=== PATIENT | male | born 1960 | race Caucasian/White ===

== ENCOUNTER 2017-07-31 16:58 | Inpatient (IN) | payer BC, OTHER ==
[~2017-07-31] VITALS: Ht 175.3 cm; Wt 70.3 kg
--- NOTE | 2017-07-31 04:00 | NUR ---
CIWA DEFERRED PATIENT SLEEPING. CIWA DEFERRED. RESPIRATION EVEN AND UNLABORED. SAFETY MEASURES IN PLACE. CALL LIGHT IN REACH. WILL CONTINUE TO MONITOR Addendum: 08/01/17 at 0632 by LUIZA FINNEGAN LVN ERROR CHARTING
[2017-07-31] MEDS ORDERED: MIRALAX 17 GM POWD.PACK PO PRN (18:15)
[2017-07-31] MEDS ORDERED: MAGNESIUM HYDROXIDE 30 ML LIQUID UDC PO PRN (18:15)
[2017-07-31] MEDS ORDERED: LORAZEPAM 2 MG/1 ML VIAL IM PRN (18:15)
[2017-07-31] MEDS ORDERED: DICYCLOMINE HCL 20 MG TABLET PO PRN (18:15)
[2017-07-31] MEDS ORDERED: LORAZEPAM 1 MG TABLET PO PRN ×2 (18:15)
[2017-07-31] MEDS ORDERED: LOPERAMIDE HCL 2 MG CAPSULE PO PRN ×2 (18:15)
[2017-07-31] MEDS ORDERED: ONDANSETRON ODT 4 MG TAB.RAPDIS SL PRN (18:15)
[2017-07-31] MEDS ORDERED: CLONIDINE HCL 0.1 MG TABLET PO PRN (18:15)
[2017-07-31] MEDS ORDERED: MAG HYDROX/AL HYDROX/SIMETH 30 ML LIQUID UDC PO PRN (18:15)
[2017-07-31] MEDS ORDERED: ONDANSETRON 4 MG/2 ML VIAL IM PRN (18:15)
--- NOTE | 2017-07-31 18:30 | NUR ---
PRE-ADMISSION NOTE RECEIVED PT DOWNSTAIRS AT INTAKE, A/O X4, PT APPEARS TO HAVE A FLAT AFFECT, AVOIDANT EYE CONTACT, SOFT SPEECH. PT IS AMBULATORY WITHOUT ASSISTANCE. INITIAL VS ARE BP: 116/58, P: 77, RR: 18, O2 SAT: 94%. PT REPORTS HAVING NO S/S OF W/D AT THIS TIME. PT IS THE PRIMARY SOURCE OF INFORMATION. PT REPORTS NKA. NO PMH. NO HOME MEDS. NO HX OF SZ. PT WEIGHS 155 VIA WEIGH SCALE; PT REPORTS HIS HEIGHT IS 5'9. SKIN IS INTACT AND BODY CHECK HAS BEEN INSPECTED. PT REPORTS SUBSTANCE USE HX: 1. ETOH 2 PINTS OF ANGÉLICA AND 6 PACK OF BEER DAILY FOR 10 PLUS YEARS. LAST USED IS TODAY 07/31/17 1630. 2. COCAINE " 40 DOLLARS WORTH" DAILY FOR 3-4 YEARS. LAST USED TODAY 07/31/17 1630. 3. PCP PT REPORTS HE USES PCP "EVERY NOW AND THEN" UNKNOWN AMOUNT. LAST USED UNKNOWN. 4. MARIJUANA 4-5 BLUNTS DAILY FOR 3 YEARS. LAST USED TODAY 07/31/17 1630. Addendum: 07/31/17 at 1908 by ROSIE WORTHY RN WILL GIVE ALL PERTINENT DATA AND ENDORSEMENT TO LINE CREW SUPERVISOR NURSE.
[2017-07-31 18:49] VITALS: BP 116/58
[2017-07-31] MEDS ORDERED: THIAMINE HCL 200 MG/2 ML VIAL IM ONE (19:00)
[2017-07-31 19:44] LABS: *AMPHETAMINE, URINE NEGATIVE (NEGATIVE); *BARBITURATE, URINE NEGATIVE (NEGATIVE); *CANNABINOID, URINE POSITIVE (NEGATIVE); *COCCAINE, URINE POSITIVE (NEGATIVE); *OPIATE, URINE NEGATIVE (NEGATIVE); *PHENCYCLIDINE SCREEN,URINE POSITIVE (NEGATIVE)
--- NOTE | 2017-07-31 19:45 | NUR ---
ADMISSION NOTE PATIENT CAME IN THE UNIT AT 1855. PATIENT IS A 57 YEAR OLD MALE ADMITTED FOR SUPERVISED WITHDRAWAL FROM ETOH DEPENDENCE. LUNGS CLEAR AND ABDOMEN SOFT AND NON-DISTENDED. BOWEL SOUNDS ACTIVE ON ALL 4 QUADRANT. LAST BOWEL MOVEMENT TODAY. ALERT AND ORIENTED X 4. RESPIRATION EVEN AND UNLABORED. NO SOB. PATIENT DENIES ANY PAST MEDICAL HISTORY. PATIENT STATES THAT HES BEEN LIVING IN HIS CAR AND HES HOMELESS ,HE WAS EVICTED. HES RETIRED. HIS MOM AND 2 SISTERS ARE HIS SUPPORT SYSTEM. SUBSTANCE HISTORY ; 1.ETOH (ANGÉLICA AND BEER)-STARTED DRINKING AT AGE 17. HE DRINKS 2 PINTS OF ANGÉLICA AND 6 PACK OF BEER DAILY FOR 10 YEARS . LAST DRINKS WAS 2 BEER AND 1 PINT OF ANGÉLICA PRIOR TO ADMISSION. 2.PCP-STARTED USING AT AGE 20. HE SMOKES COUPLE OF HITS INTERMITTENTLY FOR A YEAR . LAST USE WAS COUPLE OF HITS ON 07/29/17 3.COCAINE (SMOKE)-STARTED USING AT AGE 23. HE SMOKES $40 WORTH DAILY FOR 3-4 YEARS . LAST USE WAS $20 WORTH ON 07/31/16 4.MARIJUANA-STARTED USING AT AGE 18. HE SMOKES 3-4 HITS DAILY FOR 3 YEARS. LAST USE WAS COUPLE OF HITS ON 07/31/16 SUBSTANCE HISTORY: [facility]- 30 DAYS PATIENT SMOKES 1 PACK DAILY BUT IS WILLING TO QUIT. PATIENT DID NOT HAVE PCP. PATIENT DOES NOT HAVE HOME MEDICATIONS. LONGEST PERIOD OF SOBRIETY WAS A YEAR, 2 YEARS AGO. PATIENT DENIES SI/HI. CIWA 6 UPON ADMISSION. PATIENT ANXIOUS, SWEATING, NOTED WITH FINE TREMORS, NO N/V AND GENERALIZED BODY ACHES. PATIENT WAS SEEN BY DR. JHA AT INTAKE. UA PROVIDED. PATIENT ORIENTED TO SURROUNDINGS AND HOW TO USE CALL LIGHT. EXPLAINED [id number] VS, UNIT AND SMOKING POLICIES. ON FALL/SEIZURE PRECAUTION. SAFETY MEASURES IN PLACE. CALL LIGHT IN REACH, WILL CONTINUE MONITOR
[2017-07-31 20:00] VITALS: BP 106/60
[2017-07-31] MEDS ORDERED: LORAZEPAM 1 MG TABLET PO SCH (21:00)
[2017-07-31 21:33] LABS: PLATELET COUNT (AUTO) 190 K/uL (152-348)
[2017-07-31 21:42] LABS: BASOPHILS % (AUTO) 0.5 % (0.0-2.0); EOSINOPHILS # (AUTO) 0.2 K/uL (0.0-0.7); EOSINOPHILS % (AUTO) 2.2 % (0.0-7.0); HEMATOCRIT 32.2 % (36.7-47.1); HEMOGLOBIN 10.9 g/dL (12.5-16.3); LYMPHOCYTES # (AUTO) 1.1 K/uL (20.0-40.0); LYMPHOCYTES % (AUTO) 13.6 % (20.5-51.5); MEAN CORPUSCULAR HEMOGLOBIN 31.9 uug (23.8-33.4); MEAN CORPUSCULAR HGB CONC 34 g/dL (32.5-36.3); MEAN CORPUSCULAR VOLUME 94.2 fL (73.0-96.2); MONOCYTES # (AUTO) 0.4 K/uL (2.0-10.0); MONOCYTES % (AUTO) 5.3 % (0.0-11.0); NEUTROPHILS # (AUTO) 6.1 K/uL (1.8-8.9); NEUTROPHILS % (AUTO) 78.4 % (38.5-71.5); RED BLOOD CELL COUNT(AUTO) 3.41 MIL/uL (4.06-5.63); WHITE BLOOD COUNT (AUTO) 7.8 K/uL (3.6-10.2)
[2017-07-31 21:49] LABS: BILIRUBIN,TOTAL 0.3 mg/dL (0.2-1.0); MAGNESIUM 1.9 mg/dL (1.8-2.4); POTASSIUM 3.6 mmol/L (3.5-5.1); TOTAL PROTEIN, SERUM 6.3 g/dL (6.4-8.2)
[2017-07-31] MEDS: ACETAMINOPHEN 325 MG TABLET PO PRN (21:55)
--- NOTE | 2017-07-31 21:55 | NUR ---
PRN TYLENOL ADMINISTRATION PATIENT C/O BODY ACHES 12/06. WILL MONITOR FOR EFFECTIVENESS
[2017-07-31] MEDS ORDERED: NICOTINE 14 MG/24HR PATCH TD PRN (22:30)
[2017-07-31] MEDS ORDERED: NICOTINE POLACRILEX 4 MG GUM-PK OF TEN BC PRN (22:30)
[2017-08-01] VITALS: BP 113/60
--- NOTE | 2017-08-01 | NUR ---
CIWA DEFERRED PATIENT SLEEPING. CIWA DEFERRED. RESPIRATION EVEN AND UNLABORED. SAFETY MEASURES IN PLACE. CALL LIGHT IN REACH. WILL CONTINUE TO MONITOR
[2017-08-01 04:00] VITALS: BP 140/63
--- NOTE | 2017-08-01 04:00 | NUR ---
CIWA DEFERRED PATIENT SLEEPING. CIWA DEFERRED. RESPIRATION EVEN AND UNLABORED. SAFETY MEASURES IN PLACE. CALL LIGHT IN REACH. WILL CONTINUE TO MONITOR
--- NOTE | 2017-08-01 07:23 | NUR ---
END OF SHIFT NOTE PATIENT SLEPT 9 HOURS. FLUID INTAKE 500 ML. VOIDED X 1. NO BM. PATIENT IS A 57 YEAR OLD MALE NEWLY ADMITTED FOR ETOH DEPENDENCE. PATIENT WAS PLACED ON 5 DAY ATIVAN TAPER, STARTING TODAY. PATIENT WAS GIVEN PRN THIAMINE IM INJECTION ON LEFT DELTOID. NO ADVERSE REACTION. ONE TIME ATIVAN GIVEN PER DR. JHA AND PRN TYLENOL FOR PAIN. LAST CIWA 4. ON FALL PRECAUTION. SAFETY MEASURES IN PLACE. CALL LIGHT IN REACH. WILL CONTINUE TO MONITOR.
[2017-08-01 08:00] VITALS: BP 142/89
--- NOTE | 2017-08-01 08:00 | NUR ---
PATIENT IS A 57 YEAR OLD ADMITTED ON 07/31/17 FOR SUPERVISED ALCOHOL WITHDRAWAL. PATIENT IS IN BED ASLEEP AT THIS TIME, BED WITH PADDED SIDE RAILS UP X2 AND CALL LIGHT WITHIN REACH, WILL CONTINUE TO CHECK AND MONITOR PATIENT AT THIS TIME AND FOLLOW MD DETOX ORDER PLAN.
[2017-08-01] MEDS ORDERED: TUBERCULIN,PURIF.PROT.DERIV. 5 TU/0.1 ML TEST ID ONE (09:00)
[2017-08-01] MEDS: LORAZEPAM 1 MG TABLET PO SCH ×3 (09:49→20:48)
[2017-08-01] MEDS: THIAMINE HCL 100 MG TABLET PO SCH (09:49)
[2017-08-01] MEDS: MULTIVITAMINS,THERAPEUTIC TABLET PO SCH (09:49)
[2017-08-01] MEDS: FOLIC ACID 1 MG TABLET PO SCH (09:49)
--- NOTE | 2017-08-01 09:53 | NUR ---
TB test administered to L forearm, client tolerated well.
--- NOTE | 2017-08-01 10:06 | NUR ---
CIWA 17, Client is diaphoretic, gross tremors, disoriented to date>2 days, cold/chills, generalized body aches. Ativan 2mg PO administered. Dr. Hoyt notified. NNO at this time
[2017-08-01] MEDS: IBUPROFEN 400 MG TABLET PO PRN (11:37)
[2017-08-01] MEDS: ACETAMINOPHEN 325 MG TABLET PO PRN (11:37)
--- NOTE | 2017-08-01 11:37 | NUR ---
PRN MEDS 650 mg tylenol and 400 mg motrin given for generalized body aches 10/10 pain scale, will continue to monitor 2mg scheduled ativan also given at this time vital signs stable, BP122/72, HR 72, RR 18, O2 SATS 98% TEMP 98.2
--- NOTE | 2017-08-01 11:54 | NUR ---
ONE TIME DOSE 2MG PO ATIVAN X1 GIVEN PER MD ORDER, JAZ 14, WILL CONTINUE TO ASSESS Addendum: 08/01/17 at 1233 by VARSHA CASTORENA RN ERROR IN TIME ATIVAN 2MG PO GIVEN AT 1137 CIWA SCORE 14
[2017-08-01] MEDS ORDERED: LORAZEPAM 1 MG TABLET PO ONE (12:00)
[2017-08-01 12:24] VITALS: BP 122/72
--- NOTE | 2017-08-01 12:37 | NUR ---
PRN REASSESS TYLENOL AND MOTRIN PO EFFECTIVE IN REDUCING PATIENTS PAIN TO 6/10 , WILL CONTINUE TO MONITOR Addendum: 08/01/17 at 1847 by VARSHA CASTORENA RN ATIVAN 2MG PO REASSESS, JAZ Porras
[2017-08-01 16:00] VITALS: BP 144/82
--- NOTE | 2017-08-01 18:32 | NUR ---
END OF SHIFT NOTE PATIENT IS A 57 YEAR OLD ADMITTED ON 07/31/17 FOR SUPERVISED ALCOHOL WITHDRAWAL.PATIENT HAS BEEN IN BED ASLEEP MOST OF THE DAY. PATIENT IS ON DAY 1 OF A MODIFIED ATIVAN TAPER. PRN TYLENOL 650MG PO AND MOTRIN 400MG PO GIVEN AT 1137 FOR GENERALIZED BODY ACHES AND ALSO A 1 TIME DOSE OF ATIVAN 2 MG PO. LAST CIWA @1600 = 13. VS STABLE BP 144/82, HR 67, RR 16, O2 SATS 99% TEMP 98.5. SAFETY MEASURES IN PLACE, BED WITH PADDED SIDE RAILS UP X 2 AND CALL LIGHT WITHIN REACH. CONTINUE WITH MD PLAN AND MONITOR CLOSELY
--- NOTE | 2017-08-01 18:32 | NUR ---
START OF SHIFT NOTE: Endorsed patient is a 57 year old male admitted for ETOH, PCP, Cannabinoids, and Cocaine dependence continues 5 Day Ativan taper which tolerated well without ASE. Patient remains compliant with treatment, medications, and diet regime. Patient reports NKA, is on Full Code, Regular Diet, Fall and Seizures Precautions. Patient denies History of Seizures. PMH: Anxiety, Depression. Patient is alert and oriented x4. Last CIWA 12. Patient c/o anxiety, agitation, depression, nervousness, restlessness, sweating, tremors, and generalized body aches. VSWNL. Respirations are unlabored and even. Lungs Sounds are clear throughout. Patient denies cough, SOB and chest pain. Heart rate is regular. Abdomen is soft and non-tender. Bowel Sounds are active in all four quadrants. Skin is intact, warm and dry to touch. PRN Medications was effective per day shift nurse report. Encouraged fluids as tolerated. Encouraged to attend group activities. Safety measures in place: Call light within reach, bed is locked and lowest positions, padded bed rails up x2. Patient endorsed by day shift nurse. Report received. Will continue to monitor closely.
[2017-08-01 20:00] VITALS: BP 151/96
[2017-08-01] MEDS: hydrALAZINE HCL 50 MG TABLET PO PRN (20:49)
--- NOTE | 2017-08-01 20:49 | NUR ---
PRN APRESOLINE (HYDRALAZINE HCL 50 MG 1 TABLET) 50 MG 1 TABLET PO ADMINISTRATED FOR BP 151/96.
[2017-08-01] MEDS: diphenhydrAMINE 50 MG CAPSULE PO PRN (20:50)
[2017-08-01] MEDS: GABAPENTIN 300 MG CAPSULE PO SCH (20:50)
--- NOTE | 2017-08-01 20:50 | NUR ---
PRN BENADRYL 50 MG 1 CAPSULE PO ADMINISTRATION PRN Benadryl 50 mg 1 capsule PO administrated for insomnia with full glass of water as ordered. Patient tolerated well. All needs met. Safety measures on place. Call light within reach, bed in lowest position and locked, padded rails up x2. Will continue to monitor closely.
--- NOTE | 2017-08-01 21:49 | NUR ---
RE-ASSESSMENT BP decreased from 151/96, HR 95 @2048 to 129/99, HR 92 @2148. PRN Apresoline (Hydralazine HCL 50 mg 1 tab) 50 mg 1 tab PO administrated @2048 was effective. All needs met. Safety measures on place. Call light within reach, bed in lowest position and locked, padded rails up bilaterally. Will continue to monitor closely.
--- NOTE | 2017-08-01 21:50 | NUR ---
RE-ASSESSMENT Patient is sleeping. Respirations even and unlabored. RR:16. PRN Benadryl 50 mg 1 capsule PO administrated for insomnia @2049 was effective. All needs met. Safety measures on place. Call light within reach, bed in lowest position and locked, padded rails up bilaterally. Will continue to monitor closely.
[2017-08-02] VITALS: BP 118/68
[2017-08-02 04:00] VITALS: BP 135/65
--- NOTE | 2017-08-02 06:52 | NUR ---
END OF SHIFT: Patient is a 57 old male admitted for ETOH, PCP, Cannabinoids, and Cocaine dependence, continues 5 Day Ativan taper which tolerated well without ASE. Patient remains compliant with treatment, medications, and diet regime. Patient reports NKA, is on Full Code, Regular Diet, Fall and Seizures Precautions. Patient denies History of Seizures. Patient is alert and oriented x4. Last CIWA 7 @0400. Patient presented with anxiety, agitation, nervousness, nasal stuff, restlessness, tremors that can be felt, barely sweating, and body aches. Patient denies SI/HI. Last VS @0400: T: 98.4, HR:81, RR 16, RA O2SAT: 97%, BP: 135/65, generalized body aches pain level: "7/10". Respiration unlabored and even. Patient denies cough, SOB and chest pain. Skin remains intact, warm and dry to touch. Encouraged fluids intake as tolerated. Encouraged to attend groups activities. PRN Apresoline (Hydralazine HCL 50 mg 1 tab) 50 mg 1 tab PO administrated @2048, and PRN Benadryl 50 mg 1 capsule PO administrated for insomnia @2049 were effective. Patient slept 10 hours, intake 1,438 ml, voided x3. All needs met. Safety measures on place. Call light within reach, bed in lowest position and locked, bed rails up bilaterally. Patient endorsed to day shift nurse. Report given.
[2017-08-02 08:00] VITALS: BP 137/76
[2017-08-02] MEDS: FOLIC ACID 1 MG TABLET PO SCH (08:38)
[2017-08-02] MEDS: LORAZEPAM 1 MG TABLET PO SCH ×3 (08:38→20:45)
[2017-08-02] MEDS: IBUPROFEN 400 MG TABLET PO PRN (08:38)
[2017-08-02] MEDS: GABAPENTIN 300 MG CAPSULE PO SCH ×3 (08:38→20:45)
[2017-08-02] MEDS: THIAMINE HCL 100 MG TABLET PO SCH (08:39)
--- NOTE | 2017-08-02 08:39 | NUR ---
PRN ONDANSETRON ODT Patient complains of nausea, PRN ondansetron ODT given. Will continue to monitor patient.
--- NOTE | 2017-08-02 08:39 | NUR ---
PRN IBUPROFEN Patient complains of body aches 03/08, PRN ibuprofen given. Will continue to monitor patient.
[2017-08-02] MEDS: MULTIVITAMINS,THERAPEUTIC TABLET PO SCH (08:40)
[2017-08-02] MEDS ORDERED: LORAZEPAM 1 MG TABLET PO SCH (09:00)
--- NOTE | 2017-08-02 09:00 | NUR ---
START OF SHIFT Received report from casino shift manager nurse. Patient is 57 year old male admitted for medically supervised withdrawal from alcohol. Patient is full code with NKA. On Ativan taper. On assessment this AM: CIWA: 7. Denies SOB, chest pain. Patients vitals signs WNL. Patient reports anxiety, tremors, nausea and body aches. Denies stomach cramps, sweating, vomiting, diarrhea, tactile disturbance, auditory or visual hallucinations at this time. Compliant with AM meds. PRN zofran and ibuprofen given. Patient has steady gait. Encouraged to attend group meetings today. Will continue to monitor patient.
--- NOTE | 2017-08-02 09:39 | NUR ---
REASSESSMENT PRN ONDANSETRON ODT Patient reports nausea improved.
--- NOTE | 2017-08-02 09:39 | NUR ---
REASSESSMENT PRN IBUPROFEN Patient reports pain decreased to 5/10, med effective
--- NOTE | 2017-08-02 10:05 | NUR ---
Therapist prompted client to attend daily group sessions. Client related that he would if he was feeling up to it.
[2017-08-02] MEDS ORDERED: IBUPROFEN 600 MG TABLET PO PRN (10:45)
[2017-08-02 12:00] VITALS: BP 143/92
[2017-08-02 13:07] LABS: HEPATITIS B SURFACE AG Negative (Negative)
[2017-08-02 16:00] VITALS: BP 127/88
--- NOTE | 2017-08-02 19:23 | NUR ---
END OF SHIFT Patient is 57 year old male admitted for medically supervised withdrawal from alcohol. Patient is full code with NKA. On Ativan taper. Most recent CIWA: 9. Reports anxiety, body aches, tremors. PRN ibuprofen and ondansetron given this shift, effective. Ambulating with steady gait, no falls noted. No BM reported. clinical auditorhourly shift will continue to monitor patient.
--- NOTE | 2017-08-02 19:30 | NUR ---
Start of Shift Note: Patient is a 57 y.o male admitted on 07/31/17 for ETOH dependence. Patient denies any PMHx. Patient is on a regular diet with no known food and drug allergies. Full Code status noted. No seizure history noted. Skin noted to be intact. Patient is on a 5-day Ativan taper and tolerating well. Last CIWA 9. Patient received PRN Motrin and Zofran during day shift. Patient is alert & oriented x4. No shortness of breath noted. Respiration even & unlabored. Abdomen soft & non-distended. No nausea/vomiting noted. Patient reported 8/10 backache and increased anxiety. Slight hand tremors noted. Patient denies any hallucinations at this time. Safety measures in place. Bed locked in lowest position. Both side rails up. Call light within pt's reach. Will continue to monitor patient.
[2017-08-02 20:00] VITALS: BP 140/88
--- NOTE | 2017-08-02 20:45 | NUR ---
PRN Motrin Patient complaining of 8/10 backache. Pt appears restless in bed and noted with facial grimacing. PRN MOtrin PO administered as ordered. Will monitor for effectiveness.
--- NOTE | 2017-08-02 20:52 | NUR ---
PRN Nicotine gum PRN requesting for Nicotine gum. PRN Nicotine gum administered as ordered to help stop cravings to smoke. Will continue to monitor patient.
--- NOTE | 2017-08-02 21:45 | NUR ---
PRN Reassessment Patient verbalized slight relief in backache from 8/10 to 4/10 pain. PRn medication effective. Will continue to monitor patient.
[2017-08-03] VITALS (7 sets, daily range): BP systolic 118–153; BP diastolic 76–97
--- NOTE | 2017-08-03 07:18 | NUR ---
End of Shift Note: Pt is a 57 y.o male admitted on 07/31/17 for ETOH dependence. Patient continues on his Ativan taper and tolerating well. Last CIWA is 7. Pt received PRN Motrin & Nicotine gum during my shift. Pt had an uneventful night. Pt remained stable and Vitals monitored closely. Closely monitored symptoms of withdrawal. Patient shows no s/s of distress. Patient slept for a total of 9 hour. Fluid intake 1349 ml. Voided 1x with no bowel movement. All needs attended & met. Safety measures in place. Will continue to monitor patient.
--- NOTE | 2017-08-03 07:45 | NUR ---
START OF SHIFT Received report from shift supervisor melting nurse. 57 year old male admitted for ETOH, PCP, Cocaine, and Marijuana dependence. Pt admitted on 07/31/17 and started on a 5 day Ativan taper, pt is tolerating well. PRN Motrin administered for headache. PRN Nicotine gum administered. CIWA is 7. Pt slept for 9 hours over night, no acute s/s of withdrawals. V/S remain WNL. All needs met at this time, will continue to monitor.
[2017-08-03] MEDS: MULTIVITAMINS,THERAPEUTIC TABLET PO SCH (08:38)
[2017-08-03] MEDS: THIAMINE HCL 100 MG TABLET PO SCH (08:39)
[2017-08-03] MEDS: LORAZEPAM 1 MG TABLET PO SCH ×2 (08:39→15:11)
[2017-08-03] MEDS: FOLIC ACID 1 MG TABLET PO SCH (08:39)
[2017-08-03] MEDS: hydrALAZINE HCL 50 MG TABLET PO PRN (08:39)
[2017-08-03] MEDS: GABAPENTIN 300 MG CAPSULE PO SCH ×3 (08:39→20:16)
--- NOTE | 2017-08-03 08:39 | NUR ---
PRN HYDRALAZINE Pt b/p is 153/97, HR is 91. PRN Hydralazine administered as ordered. Will reassess.
--- NOTE | 2017-08-03 09:39 | NUR ---
REASSESSMENT B/P is 136/81, heart rate is 82. Medication was effective.
--- NOTE | 2017-08-03 09:57 | NUR ---
PPD NEGATIVE PPD has 0 mm induration, no redness noted.
--- NOTE | 2017-08-03 12:25 | NUR ---
Therapist prompted client to come into group today and share with others.
--- NOTE | 2017-08-03 14:26 | NUR ---
Patient called nurse to verbalize feelings. Pt stated he feels all alone outside of here. "I live out of my car, I do not have any friends, I do not have family. I have no one to turn to, I feel that I will relapse when I leave." Nurse provided calming reassurance to client and encouraged client to verbalize feelings. Nurse also asked therapist to speak with client. Therapist is with client at this time. Will continue to monitor.
[2017-08-03] MEDS: NICOTINE 14 MG/24HR PATCH TD SCH (15:00)
--- NOTE | 2017-08-03 15:12 | NUR ---
REFUSES NICOTINE PATCH Pt states he does not want the patch at this time.
--- NOTE | 2017-08-03 18:55 | NUR ---
END OF SHIFT Patient continues on taper and tolerates well. Pt attends groups and activities and is encouraged to verbalize feelings. Pt spoke with therapist about fears after leaving detox, calming reassurance provided. Pt spoke with supportive employment case manager about d/c planning. PRN Apresoline administered and effective. Reports having a BM x1. PPD read and negative. All needs met at this time. Night nurse to continue monitoring.
[2017-08-03] MEDS ORDERED: CLONIDINE HCL 0.1 MG TABLET PO PRN (19:00)
--- NOTE | 2017-08-03 19:15 | NUR ---
Start of Shift Note: Patient is a 57 y.o male admitted on 07/31/17 for ETOH dependence. Patient denies any PMHx. Patient is on a regular diet with no known food and drug allergies. Full Code status noted. No seizure history noted. Skin noted to be intact. Patient is on a 5-day Ativan taper and tolerating well. Last CIWA 7. Patient received Hydralazine for increased in blood pressure during day shift. Patient attended groups and is compliant with treatment plan. Patient is alert & oriented x4. No shortness of breath noted. Respiration even & unlabored. Abdomen soft & non-distended. No nausea/vomiting noted. Patient presented with slight anxiety and barely sweating. Slight hand tremors noted. Patient denies any hallucinations at this time. Safety measures in place. Bed locked in lowest position. Both side rails up. Call light within pt's reach. Will continue to monitor patient.
[2017-08-03] MEDS ORDERED: LORAZEPAM 1 MG TABLET PO SCH (21:00)
[2017-08-04] VITALS: BP 124/75
--- NOTE | 2017-08-04 06:58 | NUR ---
End of Shift Note: Pt is a 57 y.o male admitted on 07/31/17 for ETOH dependence. Patient continues on his Ativan taper and tolerating well. Last CIWA is 4. No PRN medication received during my shift. Pt had an uneventful night. Pt remained stable and Vitals monitored closely. Closely monitored symptoms of withdrawal. Patient shows no s/s of distress. Patient slept for a total of 8 hour. Fluid intake 1300 ml. Voided 3x with no bowel movement. All needs attended & met. Safety measures in place. Will continue to monitor patient.
[2017-08-04 08:00] VITALS: BP 119/89
--- NOTE | 2017-08-04 08:11 | NUR ---
Start of shift note; Received report from night nurse. Patient is a 57 year old male admitted on 07/31/17 for ETOH/ Cocaine dependence. Patient was placed on a 5 day Ativan taper. No past medical history reported. Patient is on a regular diet, NKA, full code status. Patient is on fall and seizure precaution. Bed in lowest position, call light within reach. Will continue to monitor patient.
[2017-08-04] MEDS: LORAZEPAM 1 MG TABLET PO SCH ×2 (08:37→20:44)
[2017-08-04] MEDS: MULTIVITAMINS,THERAPEUTIC TABLET PO SCH (08:37)
[2017-08-04] MEDS: THIAMINE HCL 100 MG TABLET PO SCH (08:37)
[2017-08-04] MEDS: FOLIC ACID 1 MG TABLET PO SCH (08:37)
[2017-08-04] MEDS: GABAPENTIN 300 MG CAPSULE PO SCH ×3 (08:37→20:44)
[2017-08-04] MEDS: AMLODIPINE 5 MG TABLET PO SCH (09:00)
[2017-08-04] MEDS: NICOTINE 14 MG/24HR PATCH TD SCH (09:00)
[2017-08-04 12:00] VITALS: BP 107/64
[2017-08-04 16:00] VITALS: BP 118/68
--- NOTE | 2017-08-04 18:44 | NUR ---
End of shift note; Patient is AOX4. Patient remained compliant with treatment plan and medication regime. Medications noted to effective in reducing withdrawal symptoms. Patient's last CIWA score is 3. All safety measures secured. Met all needs.
--- NOTE | 2017-08-04 19:15 | NUR ---
Start of Shift Note: Patient continues on his 5-day Ativan taper and tolerating well. Last CIWA 7. No PRN medications given during day shift. Pt remained compliant with medications and treatment plan. Patient is a 57 y.o male admitted on 07/31/17 for ETOH dependence. Patient denies any PMHx. Patient is on a regular diet with no known food and drug allergies. Full Code status noted. No seizure history noted. Skin noted to be intact. Patient is alert & oriented x4. No shortness of breath noted. Respiration even & unlabored. Abdomen soft & non-distended. No nausea/vomiting noted. Patient presented with slight anxiety and barely sweating. Slight hand tremors noted. Patient denies any hallucinations at this time. Safety measures in place. Bed locked in lowest position. Both side rails up. Call light within pt's reach. Will continue to monitor patient.
[2017-08-04 20:00] VITALS: BP 136/86
[2017-08-05] VITALS: BP 128/64
--- NOTE | 2017-08-05 07:05 | NUR ---
End of Shift Note: Pt is a 57 y.o male admitted on 07/31/17 for ETOH dependence. Patient continues on his Ativan taper and tolerating well. Last CIWA is 4. No PRN medication received during my shift. Pt had an uneventful night. Patient remained compliant with medications and treatment plan. Pt remained stable and Vitals monitored closely. Closely monitored symptoms of withdrawal. Patient shows no s/s of distress. Patient slept for a total of 5 hour. Fluid intake 1341 ml. Voided 4x with no bowel movement. All needs attended & met. Safety measures in place. Will continue to monitor patient.
--- NOTE | 2017-08-05 07:58 | NUR ---
Start of shift note; Received report from night nurse. Patient is a 57 year old male admitted on 07/31/17 for ETOH/ Cocaine dependence. Patient was placed on a 5 day Ativan taper. No past medical history reported. Patient is on a regular diet, NKA, full code status. Patient is on fall and seizure precaution. Patient had an uneventful night. Bed in lowest position, call light within reach. Will continue to monitor patient.
[2017-08-05 08:00] VITALS: BP 128/88
[2017-08-05] MEDS: FOLIC ACID 1 MG TABLET PO SCH (08:45)
[2017-08-05] MEDS: MULTIVITAMINS,THERAPEUTIC TABLET PO SCH (08:45)
[2017-08-05] MEDS: GABAPENTIN 300 MG CAPSULE PO SCH ×3 (08:45→21:41)
[2017-08-05] MEDS: THIAMINE HCL 100 MG TABLET PO SCH (08:45)
[2017-08-05] MEDS: NICOTINE 14 MG/24HR PATCH TD SCH (09:00)
[2017-08-05] MEDS ORDERED: LORAZEPAM 1 MG TABLET PO SCH (09:00)
[2017-08-05] MEDS: AMLODIPINE 5 MG TABLET PO SCH (09:00)
[2017-08-05 12:00] VITALS: BP 133/87
[2017-08-05 16:00] VITALS: BP 120/88
--- NOTE | 2017-08-05 18:23 | NUR ---
End of shift note; Patient is AOX4. Patient remained compliant with treatment plan and medication regime. Medications noted to effective in reducing withdrawal symptoms. Patient's last CIWA score is 2. All safety measures secured. Patient is medically cleared for discharge tomorrow. Met all needs.
[2017-08-05] MEDS ORDERED: DIPH50CA37 PO (18:33)
[2017-08-05] MEDS ORDERED: IBUP-1955 PO (18:33)
[2017-08-05] MEDS ORDERED: AMLO5TAB2 PO (18:33)
[2017-08-05] MEDS ORDERED: GABA-534 PO (18:33)
[2017-08-05] MEDS ORDERED: NICO4GUM38 BC (18:33)
--- NOTE | 2017-08-05 19:15 | NUR ---
START OF SHIFT NOTE : Patient is a 57 year old male admitted on 07/31/17 for ETOH/ Cocaine dependence. Patient completed his 5 day Ativan taper, tolerated well. No past medical history reported. Patient is on a regular diet, NKA, full code status. Patient is on fall and seizure precaution. He complains of mild increased level of anxiety. Pt. will be D/C tomorrow in A.M.. Bed in lowest position, call light within reach. Will continue to monitor patient.
[2017-08-05 20:00] VITALS: BP 134/87
--- NOTE | 2017-08-05 21:00 | NUR ---
PRN BENADRYL Pt. complains of sleeplessness. PRN BENADRYL given as ordered. Safety measures in place : bed on lowest position with side rails x2 up for safety, call light within reach. Will continue to monitor closely and offer help.
[2017-08-05] MEDS: diphenhydrAMINE 50 MG CAPSULE PO PRN (21:41)
--- NOTE | 2017-08-05 22:00 | NUR ---
RE-ASSESSMENT PAUL Pt. is sleeping, RR=16 unlabored and even. Safety measures in place : bed on lowest position with side rails x2 up for safety, call light within reach. Will continue to monitor closely and offer help.
--- NOTE | 2017-08-06 07:09 | NUR ---
END OF SHIFT NOTE : Patient is a 57 year old male admitted on 07/31/17 for ETOH/ Cocaine dependence. Patient completed his 5 day Ativan taper, tolerated well. No past medical history reported. Patient is on a regular diet, NKA, full code status. Patient is on fall and seizure precaution. He will be D/C today in A.M. Pt remains compliant with the treatment plan. PRN Benadryl given during my shift. V/S remain WNL. RR=16, even and unlabored, lungs clear upon auscultation, abdomen soft and non- distended. Pt denies nausea, vomiting and diarrhea, took shower in A.M. CIWA taken when pt. was alert during the night, LAST CIWA= 2 at 0400 , INTAKE= 1,000 ml, voided x4 , slept 6 hours. Safety measures in place : bed on lowest position with side rails x2 up for safety, call light within reach. Will continue to monitor closely and offer help.
--- NOTE | 2017-08-06 07:38 | NUR ---
Start of shift note; Received report from night nurse. Patient is a 57 year old male admitted on 07/31/17 for ETOH/ Cocaine dependence. Patient was placed on a 5 day Ativan taper. No past medical history reported. Patient is on a regular diet, NKA, full code status. Patient is on fall and seizure precaution. Patient had an uneventful night. Patient is medically cleared for discharge today. Bed in lowest position, call light within reach. Will continue to monitor patient.
[2017-08-06 08:00] VITALS: BP 124/78
[2017-08-06] MEDS: THIAMINE HCL 100 MG TABLET PO SCH (08:24)
[2017-08-06] MEDS: GABAPENTIN 300 MG CAPSULE PO SCH (08:24)
[2017-08-06] MEDS: FOLIC ACID 1 MG TABLET PO SCH (08:24)
[2017-08-06] MEDS: MULTIVITAMINS,THERAPEUTIC TABLET PO SCH (08:24)
[2017-08-06] MEDS: NICOTINE 14 MG/24HR PATCH TD SCH (08:38)
[2017-08-06] MEDS: AMLODIPINE 5 MG TABLET PO SCH (08:38)
--- NOTE | 2017-08-06 09:50 | NUR ---
Discharge note; Patient is AOX4. All valuables, belongings returned to patient. Patient completed treatment without any adverse reactions. Patient is medically cleared for discharge. Patient left in a stable condition. Met all needs.
== END 2017-08-06 09:50 | disposition other institution (70) | DRG 895 ==
LOC: SRC 18:07
PROVIDERS: ADMIT Internal Medicine; ATTEND Internal Medicine
PROC: HZ2ZZZZ Detoxification Services for Substance Abuse Treatment (ICD-10-PCS; principal; 2017-07-31)
PROC: HZ31ZZZ Individual Counseling for Substance Abuse Treatment, Behavioral (ICD-10-PCS; 2017-08-02)
PROC: HZ41ZZZ Group Counseling for Substance Abuse Treatment, Behavioral (ICD-10-PCS; 2017-08-02)
DX: F10.230 Alcohol dependence with withdrawal, uncomplicated (principal); F14.20 Cocaine dependence, uncomplicated; I15.9 Secondary hypertension, unspecified; Y90.9 Presence of alcohol in blood, level not specified; F16.10 Hallucinogen abuse, uncomplicated; Z59.0 Homelessness; F17.210 Nicotine dependence, cigarettes, uncomplicated; Z81.1 Family history of alcohol abuse and dependence; D64.9 Anemia, unspecified; F12.20 Cannabis dependence, uncomplicated; R73.9 Hyperglycemia, unspecified; R74.0 Nonspecific elevation of levels of transaminase and lactic acid dehydrogenase [LDH]
CPT/HCPCS: 36415; 70030-TC; 80307; 80349; 80353; 83735; 85025; 86592; 86705; 86803; 87340; 87806; A4663; G0480; J3411; Q0162; Q0163